=== PATIENT | male | born 1980 | race Caucasian/White ===

== ENCOUNTER 2016-05-22 19:23 | Emergency (ER) | payer MEDICAID ==
[~2016-05-22] VITALS: Ht 185.4 cm; Wt 105.0 kg
[2016-05-22 19:34] VITALS: Ht 185.4 cm; Wt 105.0 kg
[2016-05-22] MEDS ORDERED: CIPR7.5D4 LEFT EAR (19:55)
[2016-05-22] MEDS ORDERED: BEN25 PO (19:55)
--- NOTE | 2016-05-22 21:17 | ERD ---
ER Documentation Chief Complaint Date/Time DATE: 05/22/16 TIME: 21:12 Chief Complaint l ear pain for past week HPI This is a 35-year-old male presenting to the ER for left earache 1 week. Patient rating pain 9/10. No drainage from ear. No swelling. No sore throat, headache, cough, rhinorrhea or rhinitis. Patient states he took an antibiotic from [place] earlier today about 9 hours prior to arrival. Patient states after taking this medication he is now having some swelling of his tongue. No difficulty breathing, shortness of breath, wheezing, difficulty swallowing or chest pain. No weakness or fatigue. Patient has no known allergies. Patient is unsure of which medication he took however he believes it is an antibiotic. No fevers or chills. ROS All systems reviewed and are negative except as per history of present illness. Medications Home Meds Active Scripts Diphenhydramine Hcl* (Benadryl*) 25 Mg Cap, 25 MG PO Q6, #15 CAP Prov:JENNIFER CASTAÑEDA NP 05/22/16 Ciprofloxacin Hcl/Dexameth (Ciprodex Otic Suspension) 7.5 Ml Drops.susp, 4 DROP LEFT EAR BID for 7 Days, EA Prov:JENNIFER CASTAÑEDA NP 05/22/16 Allergies Allergies: Coded Allergies: No Known Allergy (Unverified , 05/22/16) Physical Exam Vitals Vital Signs Date Time Temp Pulse Resp B/P Pulse Ox O2 Delivery O2 Flow Rate FiO2 05/22/16 19:34 98.8 100 18 148/76 99 Physical Exam Const: No acute distress, alert Head: Atraumatic Eyes: Normal Conjunctiva ENT: Normal External Ears, Nose and Mouth. TMs normal bilaterally. No erythema or exudate posterior pharynx. Neck: Full range of motion..~ No meningismus. No lymphadenopathy Resp: Clear to auscultation bilaterally. No wheezing, rhonchi or crackles. Cardio: Regular rate and rhythm, no murmurs Abd: Soft, non tender, non distended. Normal bowel sounds Skin: No petechiae or rashes Back: No midline or flank tenderness Ext: No cyanosis, or edema Neur: Awake and alert Psych: Normal Mood and Affect Procedures/MDM Patient was seen in [facility]. MDM: This is a 35-year-old male presenting to the emergency department for left earache 1 week. Patient also states he is having some swelling of his tongue after taking an antibiotic pill from [place]. Unsure of which pill he took but believes it is an antibiotic. No fevers or chills upon arrival to ED. Patient is having significant pain to his left ear rating pain 9/10. No drainage from ear. No sore throat, difficulty swallowing or drooling. No visible swelling to face lips or tongue on initial assessment. Vital signs are stable. No signs or symptoms of respiratory distress. Oxygen saturation 99% on room air with 18 respirations per minute. Low suspicion for otitis media, strep pharyngitis, epiglottitis, peritonsillar abscess, pneumonia, pleural effusion or pneumothorax. Patient likely has otitis externa. Patient is appropriate for outpatient management and we given prescription for Ciprodex and Benadryl. Instructed patient to take Benadryl as soon as possible to relieve possible allergic reaction. Instructed patient to follow-up with primary care provider in the next 1-2 days for reassessment. Resources provided. Return to ED for any high fever, chest pain, difficulty breathing, shortness breath, wheezing, vomiting, diarrhea, abdominal pain or any new or worsening symptoms. Patient verbalizes understanding. All questions answered at discharge. Ivorian translation use during this encounter. Departure Diagnosis: Primary Impression: Otitis externa Condition: Stable Patient Instructions: External Ear Infection (Adult) [facility] Usted se de dios hecho un examen mdico de control que le indica que no est en frandy condicin que requiera tratamiento urgente en el Departamento de Emergencia. Un estudio ms profundo y el tratamiento de mccabe condicin pueden esperar sin ningn riesgo hasta que usted sea atendida/o en el consultorio de mccabe mdico o frandy cl rocio. Es responsabilidad suya arreglar frandy haleigh para el seguimiento del michael. MANEJO DE CONDICIONES NO URGENTES EN EL FUTURO 1) Si usted tiene un mdico de atencin primaria: Usted debera llamar a mccabe mdico de atencin primaria antes de venir al departamento de emergencia. Despus de las horas de consultorio, mccabe doctor o mccabe asociado/a est disponible por telfono. El mdico o enfermero de ashish en el servicio telefnico puede asesorarle por carmina medio para atender el problema, o michael contrario se puede programar frandy haleigh. 2) Si usted no tiene un mdico de atencin primaria: Llame al mdico o clnica de referencia que aparece abajo milan las horas de consultorio para hacer frandy haleigh para que le vean. CLINICAS: [facility] [phone] [facility] [address] [address] [facility] [phone] [address] [facility] [phone] [facility] [facility] [place] [id number] [phone] [place] [id number] [phone] [facility] [phone] [address] [facility]. [facility] () Usted se de dios hecho un examen mdico de control que le indica que no est en frandy condicin que requiera tratamiento urgente en el Departamento de Emergencia. Un estudio ms profundo y el tratamiento de mccabe condicin pueden esperar sin ningn riesgo hasta que usted sea atendida/o en el consultorio de mccabe mdico o frandy cl rocio. Es responsabilidad suya arreglar frandy haleigh para el seguimiento del michael. MANEJO DE CONDICIONES NO URGENTES EN EL FUTURO 1) Si usted tiene un mdico de atencin primaria: Usted debera llamar a mccabe mdico de atencin primaria antes de venir al departamento de emergencia. Despus de las horas de consultorio, mccabe doctor o mccabe asociado/a est disponible por telfono. El mdico o enfermero de ashish en el servicio telefnico puede asesorarle por carmina medio para atender el problema, o michael contrario se puede programar frandy haleigh. 2) Si usted no tiene un mdico de atencin primaria: Llame al mdico o condado institucions de referencia que aparece abajo milan las horas de consultorio para hacer frandy haleigh para que le vean. SI USTED NO PUEDE PAGAR PARA AIMEE UN MEDICO puede ir a: [facility] [address] [place] [address] [facility] [address] [place] [address] [facility] [address] [place] [address] [facility] [address] [place], [place] [phone] Additional Instructions: Call your primary care doctor TOMORROW for an appointment during the next 2-3 days.See the doctor sooner or return here if your condition worsens before your appointment time. Return to ED for any high fever, chest pain, difficulty breathing, shortness breath, wheezing, vomiting, diarrhea, abdominal pain or any new or worsening symptoms. JENNIFER CASTAÑEDA NP May 22, 2016 21:17
== END 2016-05-22 19:59 | disposition home or self-care (01) ==
LOC: E/R 19:23
DX: H60.92 Unspecified otitis externa, left ear (principal)
CPT/HCPCS: 99283